=== PATIENT | female | born 1930 | race Caucasian/White ===

== ENCOUNTER 2017-07-28 11:51 | Observation (INO) | payer MEDICARE, OTHER ==
[~2017-07-28] VITALS: Ht 165.1 cm; Wt 86.7 kg
[~2017-07-28 11:51] MED LIST: ACET1TAB64 PO; AMOX-291 PO; CALC-452 PO; CHOL2000 PO; CHRO1TAB6 PO; CIPR250T27 PO; FLUT10SP NAS; GABA100C PO; IBUP-1221 PO; IPRA15SP NS; LEVO150T5 PO; MAGN250T2 PO; METHENAMINE HIPPURATE PO; MULT1CAP19 PO; OMEP40CA6 PO; PHEN10TA4 PO; RED600CA2 PO; tumeric PO
[2017-07-28] MEDS ORDERED: ONDANSETRON 2MG/ML, 2ML IVPush ONE (12:30)
[2017-07-28] MEDS ORDERED: SODIUM CHLORIDE FLUSH 10ML SYR IVF ONE (12:30)
[2017-07-28] MEDS ORDERED: ONDANSETRON 2MG/ML, 2ML ONE (12:43)
[2017-07-28] MEDS ORDERED: ONDANSETRON ODT 4 MG ONE (13:07)
[2017-07-28 13:13] LABS: BASOPHILS % (AUTO) 0 % (0-1); EOSINOPHILS # (AUTO) 0.02 x10^3/uL (0-0.4); EOSINOPHILS % (AUTO) 0 % (1-7); LYMPHOCYTES # (AUTO) 1.02 x10^3/uL (1-3.4); LYMPHOCYTES % (AUTO) 14 % (22-44); MD NO; MEAN CORPUSCULAR HGB CONC 33.7 g/dL (32.4-35.8); MEAN CORPUSCULAR VOLUME 97.9 fL (80-100); MEAN PLATELET VOLUME 6.9 fL (7.4-10.4); MONOCYTES % (AUTO) 10 % (2-9); NEUTROPHILS # (AUTO) 5.51 x10^3/uL (1.8-6.8); NEUTROPHILS % (AUTO) 76 % (42-75); PLATELET COUNT 160 x10^3/uL (130-400); RED BLOOD COUNT 4.03 x10^6/uL (3.82-5.3); RED CELL DISTRIBUTION WIDTH 14.8 % (9.6-15.2)
[2017-07-28 13:21] LABS: ALANINE AMINOTRANSFERASE 12 U/L (12-78); ALBUMIN 3.1 g/dL (3.4-5.0); ANION GAP 6 mmol/L (5-15); CHLORIDE 103 mmol/L (98-107); CREATININE 0.98 mg/dL (0.55-1.02)
[2017-07-28 13:26] LABS: ALKALINE PHOSPHATASE 92 U/L (45-117); BILIRUBIN,TOTAL 1.3 mg/dL (0.2-1.0); TOTAL PROTEIN 7.8 g/dL (6.4-8.2); TROPONIN I < 0.015 ng/mL (0.000-0.045)
[2017-07-28 13:55] LABS: MICROSCOPIC AUTO
[2017-07-28 13:57] LABS: CULTURE INDICATED? YES
[2017-07-28] MEDS ORDERED: ONDANSETRON ODT 4 MG PO ONE (14:00)
[2017-07-28] MEDS ORDERED: METOCLOPRAMIDE 5 MG/ML, 2ML IVPush ONE (14:00)
[2017-07-28] MEDS ORDERED: METOCLOPRAMIDE 5 MG/ML, 2ML ONE (14:16)
[2017-07-28] MEDS ORDERED: CEFTRIAXONE PMX 1GM/50ML 50 ML IV ONE (14:30)
[2017-07-28] MEDS ORDERED: PROMETHAZINE 25 MG/ML, 1ML IM ONE (15:00)
[2017-07-28] MEDS ORDERED: PROMETHAZINE 25 MG/ML, 1ML ONE (15:01)
[2017-07-28] MEDS ORDERED: CEFTRIAXONE PMX 1GM/50ML 50 ML ONE (15:13)
[2017-07-28] MEDS ORDERED: ONDA4TAB13 SL (16:49)
[2017-07-28] MEDS ORDERED: FURO20TA3 PO (16:49)
[2017-07-28] MEDS ORDERED: GABA300C10 PO (16:49)
[2017-07-28] MEDS ORDERED: OMEP-110 PO (16:49)
[2017-07-28] MEDS ORDERED: LISI-167 PO (16:49)
[2017-07-28] MEDS ORDERED: SODIUM CHLORIDE 0.9% 1,000 ML IV SCH (16:53)
[2017-07-28] MEDS ORDERED: ENOXAPARIN 40 MG/0.4 ML SQ SCH (17:00)
[2017-07-28] MEDS ORDERED: ONDANSETRON 2MG/ML, 2ML IVPush PRN (17:00)
[2017-07-28] MEDS ORDERED: BISACODYL 10 MG SUPP PR PRN (17:00)
[2017-07-28] MEDS ORDERED: DOCUSATE 100 MG CAPSULE PO PRN (17:00)
[2017-07-28] MEDS ORDERED: POLYETHYLENE GLYCOL 17 GM PACKET PO PRN (17:00)
[2017-07-28] MEDS ORDERED: ENALAPRILAT 1.25 MG/ML, 2ML IVPush PRN (17:00)
[2017-07-28] MEDS ORDERED: ACETAMINOPHEN 325 MG TABLET PO PRN (17:00)
[2017-07-28 17:47] LABS: HEMOGLOBIN A1C 8.5 % (4.2-6.3)
[2017-07-28 17:51] VITALS: BP 123/59
[2017-07-28 19:25] VITALS: BP 117/75
[2017-07-28] MEDS: GABAPENTIN 300 MG CAPSULE PO SCH (20:59)
[2017-07-29 01:52] VITALS: BP 136/76
[2017-07-29 04:46] LABS: ALANINE AMINOTRANSFERASE 12 U/L (12-78); ALBUMIN 2.9 g/dL (3.4-5.0); ANION GAP 8 mmol/L (5-15); BILIRUBIN, DIRECT 0.3 mg/dL (0.1-0.2); CALCIUM 8.6 mg/dL (8.5-10.1); CHLORIDE 104 mmol/L (98-107); CREATININE 1.06 mg/dL (0.55-1.02)
[2017-07-29 04:48] LABS: ALKALINE PHOSPHATASE 83 U/L (45-117); BILIRUBIN,INDIRECT 0.8 mg/dL (0.0-2.0); BILIRUBIN,TOTAL 1.1 mg/dL (0.2-1.0); TOTAL PROTEIN 6.9 g/dL (6.4-8.2)
[2017-07-29] MEDS: GABAPENTIN 300 MG CAPSULE PO SCH (06:09)
[2017-07-29 06:41] VITALS: BP 116/74
[2017-07-29] MEDS ORDERED: ONDA4TAB13 SL (10:43)
[2017-07-29] MEDS ORDERED: CEFD300C37 PO (10:43)
[2017-07-29] MEDS ORDERED: CEFTRIAXONE PMX 1GM/50ML 50 ML IV SCH (11:00)
[2017-07-29] MEDS ORDERED: GABAPENTIN 300 MG CAPSULE PO SCH ×2 (12:00)
[2017-07-29 12:58] VITALS: BP 144/77
== END 2017-07-29 15:50 | disposition home or self-care (01) ==
LOC: ED 13:55 → EDIP 16:46 → INTOOBSV 16:46 → 3NW 17:19
PROVIDERS: ADMIT Family Medicine; ATTEND Family Medicine
DX: E11.65 Type 2 diabetes mellitus with hyperglycemia (principal); R11.0 Nausea; I11.9 Hypertensive heart disease without heart failure; E03.9 Hypothyroidism, unspecified; J45.909 Unspecified asthma, uncomplicated; E80.6 Other disorders of bilirubin metabolism; E44.0 Moderate protein-calorie malnutrition; Z83.3 Family history of diabetes mellitus
CPT/HCPCS: 36415; 71045; 80053; 81001; 82247; 82248; 83036; 83605; 83690; 84484; 85025; 87086; 93005; 96361; 96365; 96372; 96375; 99285; G0378; J0696; J1650; J2550; J2765; J7030; Q0162

== ENCOUNTER 2017-09-05 08:03 | Inpatient (IN) | payer OTHER ==
[~2017-09-05] VITALS: Ht 162.6 cm; Wt 82.5 kg
[~2017-09-05 08:03] MED LIST changes: +CEFD300C37 PO; +FURO20TA3 PO; +GABA300C10 PO; +LISI-167 PO; +OMEP-110 PO; +ONDA4TAB13 SL
[2017-09-05] MEDS ORDERED: LISI1TAB5 PO (08:27)
[2017-09-05] MEDS ORDERED: DONE10TA7 PO (08:27)
[2017-09-05] MEDS ORDERED: TRAM50TA2 PO (08:27)
[2017-09-05] MEDS ORDERED: SENN-87 PO (08:27)
[2017-09-05] MEDS ORDERED: LEVO25TA4 PO (08:27)
[2017-09-05] MEDS ORDERED: MORPHINE SULFATE 4 MG/ML, 1ML IVPush PRN (08:30)
[2017-09-05] MEDS ORDERED: SODIUM CHLORIDE FLUSH 10ML SYR IVF ONE (08:30)
[2017-09-05 08:36] LABS: BASOPHILS # (AUTO) 0.04 x10^3/uL (0-0.1); BASOPHILS % (AUTO) 1 % (0-1); EOSINOPHILS # (AUTO) 0.04 x10^3/uL (0-0.4); EOSINOPHILS % (AUTO) 1 % (1-7); LYMPHOCYTES # (AUTO) 1.39 x10^3/uL (1-3.4); LYMPHOCYTES % (AUTO) 19 % (22-44); MD NO; MEAN CORPUSCULAR HEMOGLOBIN 33.2 pg (27.0-34.8); MEAN CORPUSCULAR HGB CONC 33.8 g/dL (32.4-35.8); MEAN CORPUSCULAR VOLUME 98.3 fL (80-100); MEAN PLATELET VOLUME 7.1 fL (7.4-10.4); MONOCYTES # (AUTO) 0.67 x10^3/uL (0.2-0.8); MONOCYTES % (AUTO) 9 % (2-9); NEUTROPHILS # (AUTO) 5.33 x10^3/uL (1.8-6.8); NEUTROPHILS % (AUTO) 71 % (42-75); PLATELET COUNT 125 x10^3/uL (130-400); RED BLOOD COUNT 4.19 x10^6/uL (3.82-5.3); RED CELL DISTRIBUTION WIDTH 15.2 % (9.6-15.2)
[2017-09-05] MEDS ORDERED: MORPHINE SULFATE 4 MG/ML, 1ML ONE (08:44)
[2017-09-05] MEDS ORDERED: ONDANSETRON ODT 4 MG ONE (08:44)
[2017-09-05 08:48] LABS: ALANINE AMINOTRANSFERASE 12 U/L (12-78); ALBUMIN 3.2 g/dL (3.4-5.0); ANION GAP 12 mmol/L (5-15); CALCIUM 9.1 mg/dL (8.5-10.1); CHLORIDE 104 mmol/L (98-107); CREATININE 1.17 mg/dL (0.55-1.02)
[2017-09-05 08:50] LABS: ALKALINE PHOSPHATASE 86 U/L (45-117); BILIRUBIN,TOTAL 0.9 mg/dL (0.2-1.0); TOTAL PROTEIN 7.6 g/dL (6.4-8.2)
[2017-09-05] MEDS ORDERED: ONDANSETRON ODT 4 MG PO ONE (09:00)
[2017-09-05 09:13] LABS: MICROSCOPIC NOT IND
[2017-09-05 09:18] LABS: CULTURE INDICATED? NO
[2017-09-05] MEDS ORDERED: OMNIPAQUE 350 MG/ML, 100ML BOTTLE ONE (09:24)
[2017-09-05] MEDS ORDERED: HEPARIN 5,000 UNITS/ML, 1ML IV PRN (10:00)
[2017-09-05] MEDS ORDERED: HEPARIN 5,000 UNITS/ML, 1ML IV ONE (10:00)
[2017-09-05] MEDS ORDERED: HEPARIN 25,000 UNITS/500ML PMX 500 ML IV PRN (10:00)
[2017-09-05] MEDS ORDERED: APIXABAN 5 MG TABLET PO SCH ×2 (10:00→21:00)
[2017-09-05] MEDS ORDERED: SODIUM CHLORIDE FLUSH 10ML SYR IVF PRN (10:00)
[2017-09-05] MEDS ORDERED: APIXABAN 5 MG TABLET ONE (10:10)
[2017-09-05] MEDS ORDERED: LABETALOL 5MG/ML, 20ML IVPush PRN (10:30)
[2017-09-05] MEDS ORDERED: hydrALAzine 20 MG/ML, 1ML IVPush PRN (10:30)
[2017-09-05] MEDS ORDERED: POLYETHYLENE GLYCOL 17 GM PACKET PO PRN (10:30)
[2017-09-05] MEDS ORDERED: ENOXAPARIN 40 MG/0.4 ML SQ SCH (10:30)
[2017-09-05] MEDS: SENNA/DOCUSATE TABLET PO SCH (10:30)
[2017-09-05 12:00] VITALS: BP 115/65
[2017-09-05] MEDS ORDERED: PROMETHAZINE 25 MG/ML, 1ML IM PRN (15:00)
[2017-09-05] MEDS ORDERED: ONDANSETRON 2MG/ML, 2ML IVPush PRN (15:00)
[2017-09-05] MEDS ORDERED: ONDANSETRON ODT 4 MG PO PRN (15:00)
[2017-09-05] MEDS ORDERED: METOCLOPRAMIDE 5 MG/ML, 2ML IVPush PRN (15:00)
[2017-09-05] MEDS: GABAPENTIN 300 MG CAPSULE PO SCH ×2 (15:48→20:17)
[2017-09-05] MEDS: POTASSIUM CHLORIDE 20 MEQ PACKET PO SCH (15:48)
[2017-09-05] MEDS: LACTATED RINGERS 1,000 ML IV SCH ×2 (17:52→23:53)
[2017-09-05] MEDS: RIVAROXABAN 15 MG TABLET PO SCH (17:52)
[2017-09-05 18:47] VITALS: BP 104/62
[2017-09-05] MEDS: DONEPEZIL 10 MG TABLET PO SCH (20:17)
[2017-09-06 00:40] VITALS: BP 98/52
[2017-09-06] MEDS: LEVOTHYROXINE 150 MCG TABLET PO SCH (06:07)
[2017-09-06] MEDS: LACTATED RINGERS 1,000 ML IV SCH ×3 (06:07→22:14)
[2017-09-06 07:23] VITALS: BP 115/77
[2017-09-06] MEDS ORDERED: LEVOTHYROXINE 25 MCG TABLET PO SCH (09:00)
[2017-09-06] MEDS ORDERED: LISINOPRIL 20 MG TABLET PO SCH (09:00)
[2017-09-06] MEDS: POTASSIUM CHLORIDE 20 MEQ PACKET PO SCH ×3 (09:28→17:46)
[2017-09-06] MEDS: HYDROCHLOROTHIAZIDE 12.5 MG CAPSULE PO SCH (09:28)
[2017-09-06] MEDS: RIVAROXABAN 15 MG TABLET PO SCH ×2 (09:29→17:46)
[2017-09-06] MEDS: GABAPENTIN 300 MG CAPSULE PO SCH ×3 (09:29→22:14)
[2017-09-06] MEDS: LISINOPRIL 20 MG TABLET PO SCH (09:33)
[2017-09-06] MEDS: SENNA/DOCUSATE TABLET PO SCH (09:33)
[2017-09-06 10:57] LABS: ANION GAP 10 mmol/L (5-15); CALCIUM 8.4 mg/dL (8.5-10.1); CHLORIDE 104 mmol/L (98-107); CREATININE 1.22 mg/dL (0.55-1.02)
[2017-09-06] MEDS: ACETAMINOPHEN 325 MG TABLET PO PRN (12:15)
[2017-09-06 13:02] VITALS: BP 122/70
[2017-09-06 18:30] VITALS: BP 125/76
[2017-09-06] MEDS: DONEPEZIL 10 MG TABLET PO SCH (22:14)
[2017-09-07 01:42] VITALS: BP 132/84
[2017-09-07] MEDS: ACETAMINOPHEN 325 MG TABLET PO PRN (04:42)
[2017-09-07] MEDS: LACTATED RINGERS 1,000 ML IV SCH (05:59)
[2017-09-07] MEDS: LEVOTHYROXINE 150 MCG TABLET PO SCH (06:00)
[2017-09-07 07:03] VITALS: BP 146/91
[2017-09-07] MEDS: SENNA/DOCUSATE TABLET PO SCH (07:22)
[2017-09-07] MEDS ORDERED: RIVA15TA PO (09:10)
[2017-09-07] MEDS: RIVAROXABAN 15 MG TABLET PO SCH (10:20)
[2017-09-07] MEDS: HYDROCHLOROTHIAZIDE 12.5 MG CAPSULE PO SCH (10:20)
[2017-09-07] MEDS: POTASSIUM CHLORIDE 20 MEQ PACKET PO SCH ×2 (10:20→12:04)
[2017-09-07] MEDS: GABAPENTIN 300 MG CAPSULE PO SCH (10:20)
[2017-09-07] MEDS: LISINOPRIL 20 MG TABLET PO SCH (10:20)
[2017-09-12] MEDS ORDERED: APIXABAN 5 MG TABLET PO SCH (09:00)
== END 2017-09-07 13:56 | disposition home health service (06) | DRG 175 ==
LOC: ED 09:30 → EDIP 09:45 → 5SO 10:55 → DCLOUNGE 09-07 13:24
PROVIDERS: ADMIT Internal Medicine Pulmonary Disease; ATTEND Internal Medicine Pulmonary Disease
PROC: 0T9B70Z Drainage of Bladder with Drainage Device, Via Natural or Artificial Opening (ICD-10-PCS; principal; 2017-09-05)
DX: I26.99 Other pulmonary embolism without acute cor pulmonale (principal); N17.0 Acute kidney failure with tubular necrosis; R06.01 Orthopnea; E87.6 Hypokalemia; Z88.8 Allergy status to other drugs, medicaments and biological substances; E11.9 Type 2 diabetes mellitus without complications; E03.9 Hypothyroidism, unspecified; I10 Essential (primary) hypertension; J45.909 Unspecified asthma, uncomplicated; R09.02 Hypoxemia; Z66 Do not resuscitate; Z79.01 Long term (current) use of anticoagulants
CPT/HCPCS: 36415; 71045; 74177; 80048; 80053; 81003; 83605; 83690; 83735; 85025; 85520; 93005; 93306; 96374; Q0162; Q9967; J7120